=== PATIENT | female | born 1970 | race Caucasian/White ===

== ENCOUNTER 2022-06-11 09:28 | Inpatient (IN) ==
[2022-06-11] MEDS ORDERED: NS 0.9% 1000 ml BAG 1,000 ML IV ONE ×2 (09:37→09:47)
[2022-06-11] MEDS ORDERED: Magnesium Sulfate 2 gm BAG 2 GM/50 ML BAG ONE (09:42)
[2022-06-11] MEDS ORDERED: Magnesium Sulfate 2 gm BAG 2 GM/50 ML BAG IVPB ONE (09:46)
[2022-06-11] MEDS: Amiodarone 150 mg IVPREMIX 150 MG/100 ML BAG IV ONE ×2 (09:50→10:35)
[2022-06-11 10:00] LABS: ABS Basophils 0.1 10^3/ul (0-0.2); ABS Eosinophils 0.1 10^3/ul (0-0.6); ABS Monocytes 0.8 10^3/ul (0-0.8); ABS Neutrophils 13.7 10^3/ul (1.5-7.7); Eosinophil % 0.6 %; Hematocrit 48 % (35-47); Hemoglobin 15.7 g/dL (12.0-16.0); Mean Corpuscular HGB Conc 33 g/dL (31-36); Mean Corpuscular Hemoglobin 29 pg (27-31); Mean Corpuscular Volume 90 fL (80-97); Nucleated Red Blood Cells % 0.1; Platelet Count 372 10^3/uL (150-450); Red Blood Count 5.37 10^6 /uL (3.70-4.87); Red Cell Distribution Width 15 % (10-15); White Blood Count 16.7 10^3/uL (3.5-10.8)
[2022-06-11] MEDS ORDERED: Amiodarone 360 MG IVPREMIX 360 MG/200 ML BAG IV ONE ×2 (10:02→16:40)
[2022-06-11 10:07] LABS: INR 0.97 (0.88-1.18)
[2022-06-11 10:28] LABS: Albumin 4.3 g/dL (3.2-5.2); Albumin/Globulin Ratio 1.7 (1-3); Calcium 9.9 mg/dL (8.6-10.3); Creatinine, Serum 1.21 mg/dL (0.51-0.95); Globulin 2.5 g/dL (2-4); Total Bilirubin 0.4 mg/dL (0.2-1.0); Total Protein 6.8 g/dL (6.4-8.9); eGFR CKD-EPI 53.9 (>60)
[2022-06-11] MEDS ORDERED: Amiodarone 150 mg IVPREMIX 150 MG/100 ML BAG IV ONE ×2 (10:29→10:36)
[2022-06-11 10:33] LABS: Potassium 5.1 mmol/L (3.5-5.0)
[2022-06-11] MEDS ORDERED: Metoprolol Tartrate 5 mg VIAL 5 ml VIAL (1 mg/ml) IV ONE (10:33)
[2022-06-11 11:26] LABS: High Sensitivity Troponin 1 Hr 9 pg/mL (<15)
[2022-06-11] MEDS: Enoxaparin 40 MG/0.4 ML SYR SUBCUT SCH (14:06)
[2022-06-11] MEDS: Morphine ER 15 mg TAB ** extended release PO SCH ×2 (14:06→21:04)
[2022-06-11 14:33] LABS: C Reactive Protein 2.98 mg/L (<8.01); Rheumatoid Factor < 10 IU/mL (<15)
[2022-06-11] MEDS ORDERED: Dextrose 50% Syringe 50 ml 25 GM/50 ML SYRINGE IV PUSH PRN (14:46)
[2022-06-11] MEDS: CEVIMELINE 30 MG PO SCH ×2 (15:05→21:14)
[2022-06-11 16:29] LABS: Urine Appearance Clear; Urine Bilirubin Negative (Negative); Urine Blood 2+ (Negative); Urine Color Yellow; Urine Glucose Negative (Negative); Urine Ketones Negative (Negative); Urine Nitrite Negative (Negative); Urine Protein Negative (Negative); Urine Urobilinogen Negative (Negative)
[2022-06-11] MEDS ORDERED: Lorazepam PYXIS KEY PRN (16:32)
[2022-06-11] MEDS ORDERED: Amiodarone 360 MG IVPREMIX 360 MG/200 ML BAG IV SCH ×2 (16:35→16:40)
[2022-06-11] MEDS ORDERED: Lorazepam PYXIS KEY ONE (16:35)
[2022-06-11] MEDS ORDERED: LORazepam 2 mg VIAL 1 ml ONE (16:35)
[2022-06-11 16:39] LABS: Urine Bacteria 1+ (Absent); Urine Red Blood Cell 2+(6-10/hpf) (Absent); Urine Squamous Epithelial Cell Present (Absent); Urine White Blood Cell Trace(0-5/hpf) (Absent)
[2022-06-11] MEDS ORDERED: Nicotine PATCH 14 MG/24 HR PATCH ONE (16:39)
[2022-06-11] MEDS: LORazepam 2 mg VIAL 1 ml IV PUSH PRN (17:17)
[2022-06-11] MEDS: Amiodarone 360 MG IVPREMIX 360 MG/200 ML BAG IV SCH (17:20)
[2022-06-11] MEDS ORDERED: hydrALAZINE 20 mg/ml 1 ML Vial IV IV SLOW PU PRN (22:09)
[2022-06-12] MEDS: niCARdipine 0.1MG/ML IVPREMIX 20 MG/200 ML BAG IV SCH ×2 (03:18→06:28)
[2022-06-12 04:25] LABS: ABS Eosinophils 0.1 10^3/ul (0-0.6); ABS Lymphocytes 2.3 10^3/ul (1.0-4.8); ABS Monocytes 0.7 10^3/ul (0-0.8); ABS Neutrophils 8.3 10^3/ul (1.5-7.7); Eosinophil % 1.1 %; Hematocrit 46 % (35-47); Hemoglobin 14.6 g/dL (12.0-16.0); Lymphocyte % 20.2 %; Mean Corpuscular HGB Conc 32 g/dL (31-36); Mean Corpuscular Hemoglobin 29 pg (27-31); Mean Corpuscular Volume 90 fL (80-97); Platelet Count 306 10^3/uL (150-450); Red Blood Count 5.05 10^6 /uL (3.70-4.87); Red Cell Distribution Width 15 % (10-15); White Blood Count 11.6 10^3/uL (3.5-10.8)
[2022-06-12 04:37] LABS: INR 1.03 (0.88-1.18)
[2022-06-12] MEDS: Amiodarone 360 MG IVPREMIX 360 MG/200 ML BAG IV SCH (04:45)
[2022-06-12 04:59] LABS: Calcium 9.5 mg/dL (8.6-10.3); Creatinine, Serum 0.94 mg/dL (0.51-0.95); Magnesium 2.2 mg/dL (1.9-2.7); Potassium 4.4 mmol/L (3.5-5.0)
[2022-06-12] MEDS: Morphine ER 15 mg TAB ** extended release PO SCH ×3 (08:40→20:39)
[2022-06-12] MEDS: Nicotine GUM 4MG FRUIT FLAVOR PO PRN ×2 (08:50→13:29)
[2022-06-12] MEDS ORDERED: Nicotine PATCH 14 MG/24 HR PATCH TRANSDERM SCH (09:00)
[2022-06-12] MEDS: CEVIMELINE 30 MG PO SCH ×3 (09:11→20:39)
[2022-06-12] MEDS ORDERED: Heparin 2 UNITS/ML 1000 mls 2,000 ML IV ONE (10:03)
[2022-06-12] MEDS ORDERED: Lidocaine 1% MPF 5 ML VIAL ONE (10:03)
[2022-06-12] MEDS ORDERED: Iohexol 350 (CONTRAST) 100 ML PAK IV ONE (10:03)
[2022-06-12] MEDS ORDERED: Heparin 1,000 UNIT/ML 10 ml (10,000 UNITS) CATHLAB/DIALYSIS ONE (10:04)
[2022-06-12] MEDS ORDERED: fentaNYL 100 mcg/2 ml 50 MCG/ML VIAL ONE (10:04)
[2022-06-12] MEDS ORDERED: niCARdipine 0.1MG/ML IVPREMIX 20 MG/200 ML BAG IV ONE (10:04)
[2022-06-12] MEDS ORDERED: Midazolam 5 mg/5 ml VIAL 1 mg/ml 5 ml VIAL (5 mg) ONE (10:04)
[2022-06-12] MEDS ORDERED: nitroGLYCERIN DRIP 25,000 MCG/250 ML BTL ONE (10:04)
[2022-06-12] MEDS: LORazepam 2 mg VIAL 1 ml IV PUSH PRN (13:45)
[2022-06-12] MEDS: Enoxaparin 40 MG/0.4 ML SYR SUBCUT SCH (13:50)
[2022-06-12] MEDS ORDERED: Amiodarone 400 mg TAB PO ONE (14:42)
[2022-06-12] MEDS: Amiodarone 400 mg TAB PO SCH (20:39)
[2022-06-13] MEDS: hydrALAZINE 20 mg/ml 1 ML Vial IV IV SLOW PU PRN ×2 (00:15→21:43)
[2022-06-13 04:57] LABS: ABS Basophils 0.1 10^3/ul (0-0.2); ABS Eosinophils 0.1 10^3/ul (0-0.6); ABS Lymphocytes 1.6 10^3/ul (1.0-4.8); ABS Monocytes 0.6 10^3/ul (0-0.8); ABS Neutrophils 7.9 10^3/ul (1.5-7.7); Eosinophil % 0.9 %; Hematocrit 46 % (35-47); Hemoglobin 15.1 g/dL (12.0-16.0); Lymphocyte % 15.9 %; Mean Corpuscular HGB Conc 33 g/dL (31-36); Mean Corpuscular Hemoglobin 30 pg (27-31); Mean Corpuscular Volume 90 fL (80-97); Mean Platelet Volume 7.5 fL (7.4-10.4); Platelet Count 318 10^3/uL (150-450); Red Blood Count 5.11 10^6 /uL (3.70-4.87); Red Cell Distribution Width 15 % (10-15); White Blood Count 10.2 10^3/uL (3.5-10.8)
[2022-06-13 05:40] LABS: Creatinine, Serum 0.98 mg/dL (0.51-0.95); Potassium 4.5 mmol/L (3.5-5.0)
[2022-06-13 05:41] LABS: Calcium 9.2 mg/dL (8.6-10.3); eGFR CKD-EPI 69.4 (>60)
[2022-06-13] MEDS: Morphine ER 15 mg TAB ** extended release PO SCH ×3 (07:49→20:33)
[2022-06-13] MEDS: CEVIMELINE 30 MG PO SCH ×3 (07:50→20:33)
[2022-06-13] MEDS: Amiodarone 400 mg TAB PO SCH ×2 (07:50→20:33)
[2022-06-13] MEDS: Spironolactone/HCTZ 25-25 mg PO SCH (07:52)
[2022-06-13] MEDS: Enoxaparin 40 MG/0.4 ML SYR SUBCUT SCH (12:46)
[2022-06-13 15:17] LABS: Complement C3 100 mg/dL (75 - 175)
[2022-06-13] MEDS: Nicotine GUM 4MG FRUIT FLAVOR PO PRN ×2 (16:03→20:38)
[2022-06-13] MEDS ORDERED: hydrALAZINE 20 mg/ml 1 ML Vial IV IV SLOW PU ONE (23:10)
[2022-06-13] MEDS ORDERED: hydrALAZINE 20 mg/ml 1 ML Vial IV IV SLOW PU PRN (23:11)
[2022-06-14 06:59] LABS: Calcium 9.5 mg/dL (8.6-10.3); Creatinine, Serum 1.04 mg/dL (0.51-0.95); Potassium 4.6 mmol/L (3.5-5.0); eGFR CKD-EPI 64.7 (>60)
[2022-06-14] MEDS: Amiodarone 400 mg TAB PO SCH ×2 (09:22→20:19)
[2022-06-14] MEDS: Morphine ER 15 mg TAB ** extended release PO SCH ×3 (09:22→20:19)
[2022-06-14] MEDS: Spironolactone/HCTZ 25-25 mg PO SCH (09:23)
[2022-06-14] MEDS: CEVIMELINE 30 MG PO SCH ×3 (09:23→20:20)
[2022-06-14] MEDS: Nicotine GUM 4MG FRUIT FLAVOR PO PRN ×2 (11:32→15:49)
[2022-06-14] MEDS: Enoxaparin 40 MG/0.4 ML SYR SUBCUT SCH (13:47)
[2022-06-15 05:29] LABS: Calcium 9.6 mg/dL (8.6-10.3); Creatinine, Serum 0.94 mg/dL (0.51-0.95); Potassium 4.8 mmol/L (3.5-5.0)
[2022-06-15] MEDS: Morphine ER 15 mg TAB ** extended release PO SCH ×3 (08:50→20:31)
[2022-06-15] MEDS: Amiodarone 400 mg TAB PO SCH ×2 (08:50→20:30)
[2022-06-15] MEDS: CEVIMELINE 30 MG PO SCH ×3 (08:51→20:31)
[2022-06-15] MEDS: Enoxaparin 40 MG/0.4 ML SYR SUBCUT SCH (11:15)
[2022-06-15] MEDS: Nicotine GUM 4MG FRUIT FLAVOR PO PRN (14:19)
[2022-06-16 06:10] LABS: ABS Eosinophils 0.1 10^3/ul (0-0.6); ABS Lymphocytes 1.9 10^3/ul (1.0-4.8); ABS Monocytes 0.7 10^3/ul (0-0.8); ABS Neutrophils 7.3 10^3/ul (1.5-7.7); Eosinophil % 1.3 %; Hematocrit 46 % (35-47); Lymphocyte % 18.9 %; Mean Corpuscular HGB Conc 33 g/dL (31-36); Mean Corpuscular Hemoglobin 30 pg (27-31); Mean Corpuscular Volume 91 fL (80-97); Mean Platelet Volume 7.8 fL (7.4-10.4); Platelet Count 329 10^3/uL (150-450); Red Cell Distribution Width 15 % (10-15)
[2022-06-16 07:04] LABS: Blood Urea Nitrogen 37 mg/dL (6-24); CO2 Carbon Dioxide 28 mmol/L (22-32); Chloride 102 mmol/L (101-111); Creatinine, Serum 1.31 mg/dL (0.51-0.95); Glucose 138 mg/dL (70-100); Sodium 134 mmol/L (135-145)
[2022-06-16 07:06] LABS: Anion Gap 4 mmol/L (2-11)
[2022-06-16] MEDS: Morphine ER 15 mg TAB ** extended release PO SCH ×2 (07:49→13:08)
[2022-06-16] MEDS: Amiodarone 400 mg TAB PO SCH (07:49)
[2022-06-16] MEDS: CEVIMELINE 30 MG PO SCH ×2 (07:49→13:08)
[2022-06-16] MEDS ORDERED: Lactated Ringers 1000 ml BAG 1,000 ML IV SCH (09:00)
[2022-06-16 12:27] LABS: Urine Appearance Clear; Urine Bilirubin Negative (Negative); Urine Blood 1+ (Negative); Urine Color Yellow; Urine Glucose Negative (Negative); Urine Ketones Negative (Negative); Urine Nitrite Negative (Negative); Urine Protein Negative (Negative); Urine Specific Gravity 1.013 (1.002-1.030); Urine Urobilinogen Negative (Negative)
[2022-06-16 12:31] LABS: Urine Bacteria 1+ (Absent); Urine Red Blood Cell 2+(6-10/hpf) (Absent); Urine Squamous Epithelial Cell Present (Absent); Urine White Blood Cell Trace(0-5/hpf) (Absent)
[2022-06-16] MEDS: Nicotine GUM 4MG FRUIT FLAVOR PO PRN ×2 (13:08→15:14)
[2022-06-16] MEDS: Enoxaparin 40 MG/0.4 ML SYR SUBCUT SCH (13:09)
[2022-06-16 15:40] LABS: Calcium 9.1 mg/dL (8.6-10.3); Creatinine, Serum 1.36 mg/dL (0.51-0.95); eGFR CKD-EPI 46.9 (>60)
[2022-06-16 16:08] VITALS: BP 144/77
[2022-06-16] MEDS ORDERED: hydrALAZINE 20 mg/ml 1 ML Vial IV IV SLOW PU PRN (16:32)
== END 2022-06-16 17:35 | disposition short-term general hospital (02) | DRG 192 ==
LOC: ED 09:28 → EDHOLD 11:31 → ICU 12:59
PROVIDERS: ADMIT Internal Medicine Critical Care Medicine; ATTEND Internal Medicine Critical Care Medicine

== ENCOUNTER 2023-10-09 15:21 | Observation (INO) ==
[2023-10-09 15:53] LABS: Hematocrit 39.5 % (35-45); Hemoglobin 13.5 g/dL (11.5-14.3); Mean Corpuscular Hemoglobin 30.4 pg (27-33); Mean Corpuscular Hgb Conc 34.3 g/dL (31-36); Mean Corpuscular Volume 88.6 fL (80-97); Mean Platelet Volume 6.8 fL (7.5-11.2); Platelet Count 387 10^3/uL (150-450); Red Blood Count 4.46 10^6/uL (3.63-4.92); White Blood Count 9.1 10^3/uL (3.8-11.8)
[2023-10-09 16:19] LABS: INR 1.17 (0.83-1.13)
[2023-10-09 16:37] LABS: Albumin 3.6 g/dL (3.2-5.2); Albumin/Globulin Ratio 1.3 (1-3); Creatinine, Serum 1.73 mg/dL (0.51-0.95); Globulin 2.7 g/dL (2-4); Potassium 3.2 mmol/L (3.5-5.0); Total Bilirubin 0.9 mg/dL (0.2-1.0); Total Protein 6.3 g/dL (6.4-8.9); eGFR CKD-EPI 34.9 (>60)
[2023-10-09 16:55] LABS: ABS Basophils 0.1 10^3/uL (0.0-0.1); ABS Eosinophils 0.1 10^3/uL (0.0-0.5); ABS Lymphocytes 1.8 10^3/uL (1.0-4.8); ABS Monocytes 0.6 10^3/uL (0.0-0.9); ABS Neutrophils 6.6 10^3/uL (1.5-7.6); ABS Nucleated RBC 0.01 10^3/ul; Eosinophil % 1.4 %; Lymphocyte % 19.4 %; Nucleated Red Blood Cells % 0.1 %/100WBC (0.0-0.8)
[2023-10-09 17:18] LABS: High Sensitivity Troponin 1 Hr 289 pg/mL (<15)
[2023-10-09] MEDS: Lactated Ringers 1000 ml BAG 1,000 ML IV ONE (17:35)
[2023-10-09] MEDS: Iodixanol (CONTRAST) 320 MG/ML 100 ML SDV IV ONE (18:51)
[2023-10-09] MEDS ORDERED: Sulfur Hexaflouride MICROSPHR 25 MG VIAL IV ONE (21:28)
[2023-10-09] MEDS ORDERED: Nicotine Lozenge mini 4 MG LOZNG.MINI MT PRN (22:03)
[2023-10-09] MEDS ORDERED: Nicotine GUM 4MG FRUIT FLAVOR PO PRN (22:03)
[2023-10-09] MEDS: Morphine ER 15 mg TAB ** extended release PO ONE (22:15)
[2023-10-09] MEDS: Nicotine PATCH 21 MG/24 HR PATCH TRANSDERM ONE (22:15)
[2023-10-09] MEDS ORDERED: Ondansetron 4 mg VIAL 2 MG/ML 2 ml VIAL IV PRN (23:02)
[2023-10-09] MEDS: Potassium Chlor 20 meq TAB.ER PO ONE (23:55)
[2023-10-10 01:22] LABS: High Sensitivity Troponin 3 Hr 228 pg/mL (<15)
[2023-10-10 01:26] LABS: Blood Urea Nitrogen 19 mg/dL (6-24); CO2 Carbon Dioxide > 45 mmol/L (22-32); Calcium 8.4 mg/dL (8.6-10.3); Chloride 83 mmol/L (101-111); Creatinine, Serum 1.81 mg/dL (0.51-0.95); Glucose 108 mg/dL (70-100); Potassium 2.8 mmol/L (3.5-5.0); Sodium 135 mmol/L (135-145); eGFR CKD-EPI 33.1 (>60)
[2023-10-10 01:53] LABS: Magnesium 1.3 mg/dL (1.9-2.7)
[2023-10-10] MEDS: KCL 20 MEQ/100 ML IVPREMIX 20 MEQ/100 ML BAG IV SCH (02:18)
[2023-10-10] MEDS: Lactated Ringers 1000 ml BAG 1,000 ML IV SCH (02:18)
[2023-10-10] MEDS: Magnesium Sulf 4 GM/100 ML IV 4,000 MG/100 ML BAG IVPB ONE (04:27)
[2023-10-10 06:10] LABS: ABS Eosinophils 0.3 10^3/uL (0.0-0.5); ABS Lymphocytes 2.3 10^3/uL (1.0-4.8); ABS Monocytes 0.5 10^3/uL (0.0-0.9); ABS Neutrophils 4.6 10^3/uL (1.5-7.6); ABS Nucleated RBC 0.01 10^3/ul; Eosinophil % 3.4 %; Hematocrit 44.2 % (35-45); Hemoglobin 14.6 g/dL (11.5-14.3); Lymphocyte % 30.1 %; Mean Corpuscular Hemoglobin 29.4 pg (27-33); Mean Corpuscular Volume 89.2 fL (80-97); Nucleated Red Blood Cells % 0.1 %/100WBC (0.0-0.8); Platelet Count 390 10^3/uL (150-450); Red Blood Count 4.95 10^6/uL (3.63-4.92); Red Cell Distribution Width 16.5 % (12-17); White Blood Count 7.7 10^3/uL (3.8-11.8)
[2023-10-10 06:28] LABS: Urine Appearance Clear; Urine Bilirubin Negative (Negative); Urine Blood Negative (Negative); Urine Color Colorless; Urine Glucose Negative (Negative); Urine Ketones Negative (Negative); Urine Nitrite Negative (Negative); Urine Protein Negative (Negative); Urine Specific Gravity 1.009 (1.002-1.030); Urine Urobilinogen Negative (Negative); Urine pH 7.5 (5.0-8.0)
[2023-10-10 06:41] LABS: Albumin 3.7 g/dL (3.2-5.2); Albumin/Globulin Ratio 1.3 (1-3); Calcium 9.5 mg/dL (8.6-10.3); Creatinine, Serum 1.55 mg/dL (0.51-0.95); Globulin 2.8 g/dL (2-4); Magnesium 2.3 mg/dL (1.9-2.7); Potassium 3.5 mmol/L (3.5-5.0); Total Bilirubin 0.8 mg/dL (0.2-1.0); Total Protein 6.5 g/dL (6.4-8.9); eGFR CKD-EPI 39.8 (>60)
[2023-10-10] MEDS: Enoxaparin 40 MG/0.4 ML SYR SUBCUT SCH (07:25)
[2023-10-10] MEDS: Morphine ER 15 mg TAB ** extended release PO SCH (07:26)
[2023-10-10] MEDS: Potassium Chlor 20 meq TAB.ER PO SCH (07:26)
[2023-10-10 08:57] LABS: PCO2 Arterial 53 mmHg (35-45); PO2 Arterial 76 mmHg (80-100)
[2023-10-10] MEDS: Nicotine PATCH 21 MG/24 HR PATCH TRANSDERM SCH (09:26)
[2023-10-10] MEDS: NS 0.9% w/ 40 Meq KCL 1000 ML 1,000 ML IV SCH (16:51)
[2023-10-10] MEDS: Albuterol HFA INHALER 8 gm MDI INH PRN (20:34)
[2023-10-11 06:50] LABS: Calcium 8.9 mg/dL (8.6-10.3); Creatinine, Serum 1.31 mg/dL (0.51-0.95); Magnesium 2.2 mg/dL (1.9-2.7); Potassium 4.9 mmol/L (3.5-5.0); eGFR CKD-EPI 48.7 (>60)
[2023-10-11 09:33] LABS: Venous Bicarbonate HCO3 27.7 mmol/L (24-28)
[2023-10-11 11:56] VITALS: BP 177/100
== END 2023-10-11 13:35 | disposition home or self-care (01) ==
LOC: EDHOLD 15:21 → ED 15:21 → SUATTDRO 21:28 → MEDTELE 10-10 14:20
PROVIDERS: ADMIT Hospitalist; ATTEND Internal Medicine